=== PATIENT | male | born 1995 | race Caucasian/White ===

== ENCOUNTER 2021-02-23 09:10 | Outpatient (REF) | payer BC, SELFPAY ==
[2021-02-23 10:04] LABS: COVID-19 Test Positive (Negative)
== END 2021-02-23 09:11 | disposition home or self-care (01) ==
LOC: HO.LAB 09:10
PROVIDERS: Visit Provider Internal Medicine
DX: Z20.822 Contact with and (suspected) exposure to COVID-19 (principal)
CPT/HCPCS: 36415; 87635; C9803